=== PATIENT | female | born 1995 ===

== ENCOUNTER 2021-07-29 11:56 | Outpatient (REF) | payer SELFPAY ==
[2021-07-29 13:02] LABS: Binax Now Covid-19 Ag Positive (Negative)
[2021-07-29 13:03] LABS: Binax Internal Control QC Valid
== END 2021-07-29 11:57 | disposition home or self-care (01) ==
LOC: HO.LAB 11:56
PROVIDERS: Visit Provider Internal Medicine
DX: Z20.822 Contact with and (suspected) exposure to COVID-19 (principal)
CPT/HCPCS: 36415; C9803